=== PATIENT | male | born 2000 | race Caucasian/White ===

== ENCOUNTER 2020-03-25 12:39 | Inpatient (IN) | payer OTHER ==
[~2020-03-25] VITALS: Ht 177.8 cm; Wt 92.7 kg
[2020-03-25] MEDS ORDERED: ZOLO25TA PO (12:47)
[2020-03-25 13:21] LABS: HEMATOCRIT 44.1 % (42.0-52.0); HEMOGLOBIN 15.2 g/dl (13.5-17.5); MEAN CORPUSCULAR HEMOGLOBIN 30.2 pg (27.0-33.0); MEAN CORPUSCULAR HGB CONC 34.5 g/dl (32.0-36.5); MEAN CORPUSCULAR VOLUME 87.7 fl (80.0-96.0); PLATELET COUNT, AUTOMATED 246 10^3/uL (150-450); RED BLOOD COUNT 5.03 10^6/uL (4.30-6.10); WHITE BLOOD COUNT 8.9 10^3/uL (4.0-10.0)
[2020-03-25 14:31] LABS: ACETAMINOPHEN LEVEL < 2.0 UG/ML (10.0-30.0); ALBUMIN 4.1 GM/DL (3.2-5.2); ALT/SGPT 30 U/L (12-78); BILIRUBIN,DIRECT 0.1 MG/DL (0.0-0.2); BILIRUBIN,TOTAL 0.5 MG/DL (0.2-1.0); BLOOD UREA NITROGEN 17 MG/DL (7-18); CALCIUM LEVEL 9.3 MG/DL (8.5-10.1); CARBON DIOXIDE LEVEL 24 MEQ/L (21-32); CHLORIDE LEVEL 111 MEQ/L (98-107); CREATININE FOR GFR 0.97 MG/DL (0.70-1.30); ETHYL ALCOHOL (ETHANOL) < 0.003 % (0.000-0.010); GLUCOSE, FASTING 88 MG/DL (70-100); POTASSIUM SERUM 4.1 MEQ/L (3.5-5.1); SALICYLATE LEVEL < 1.7 MG/DL (5.0-30.0); SODIUM LEVEL 142 MEQ/L (136-145); THYROID STIMULATING HORMONE 0.809 uIU/ML (0.463-3.98); TOTAL PROTEIN 7.4 GM/DL (6.4-8.2)
[2020-03-25 16:05] LABS: AMPHETAMINES LEVEL URINE NEGATIVE (NEGATIVE); BARBITURATES URINE NEGATIVE (NEGATIVE); BENZODIAZEPINES URINE NEGATIVE (NEGATIVE); CANNABINOIDS URINE NEGATIVE (NEGATIVE); COCAINE METABOLITE URINE NEGATIVE (NEGATIVE); METHADONE URINE NEGATIVE (NEGATIVE); OPIATES URINE NEGATIVE (NEGATIVE); PHENCYCLIDINE URINE NEGATIVE (NEGATIVE)
[2020-03-25] MEDS ORDERED: OLANZapine ORAL DISINTEGRATING TAB 5MG PO PRN (18:45)
[2020-03-25] MEDS ORDERED: ACETAMINOPHEN TAB 650MG DOSE (2X325MG) PO PRN (18:45)
[2020-03-25] MEDS ORDERED: MOM 30ML SUSPENSION UDC PO PRN (18:45)
[2020-03-25] MEDS ORDERED: traZODone 50 MG TAB PO PRN (18:45)
[2020-03-25] MEDS ORDERED: MAALOX 30 ML SUSP *UDC PO PRN (18:45)
[2020-03-25 22:36] VITALS: BP 125/73
[2020-03-26 06:51] VITALS: BP 116/70
--- NOTE | 2020-03-26 09:56 | MHHPEPDOC ---
[facility] History & Physical History and Physical DATE OF ADMISSION: Mar 25, 2020 at 18:31 Subjective HPI: Andriy presents today for concerns regarding his mental health. He describes his mood as depressed and demotivated. However, the patient denies hallucination . No current outpatient treatment. He reports to be feeling depressed since December without much elaboration and reports to have multiple stressors that have been getting worse. Since this development and frequent clinic visits, he reports to be getting minimal sleep and has had extra duty from 6 pm to 11 pm after leaving the [employer] [facility] from [place]. He states to have some leave bu ilt up and decided to go to [place] to his fiance. He feels a lack of safety with his depressive symptoms worsening every day. Andriy admits in the last couple of weeks he has had some suicidal thoughts, but never wanted to act on it. Right now, he states that he does not have any suicidal thoughts. The last time he has had mental health treatment was in high school. At the time he was taking Prozac. Andriy admits that he has a at home, and he regrets not telling her about his suicidal thoughts. Andriy denies a history of hearing voices or staying up all night doing things he would otherwise not do. MEDICATIONS: He has not been on Zoloft long enough to notice a difference. FAMILY HISTORY: He also denies any history of mental health issues or substance abuse. 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 Objective Appearance: Well nourished. Well groomed. Appears to be stated age. Behavior: Pleasant. Cooperative with good eye contact. Engaged. Affect: Restricted. Mood: Depressed. Speech: Spontaneous and Fluid. Normal volume. Normal rate. Cognition: Alert, Attentive, and Oriented to person, place, time. Memory: No formal testing. No gross abnormalities of short or peat shredder tender memory noted during interview. Thought Form: Linear and goal directed. Thought Content: No evidence of delusions. Suicidal ideation present. No thoughts of self harm. No evidence of aggressive or homicidal ideation. Judgement: Fair Insight:fair Assessment F32.9 Major depressive disorder, single episode, unspecified (possibly adjustment disorder) Plan Requires a multi-modal treatment plan as this is severe and complex, needing close coordination. Restart Zoloft 25mg daily . INITIAL TREATMENT PLAN: 1. Patient was admitted on a 9.39 2. Complete history was obtained. 3. With patients permission, family will be contacted and database will be expanded. 4. Patients medication regimen will be reviewed and changed accordingly. 5. Patient will be provided with protected environment. 6. Patient will be treated with individual, group, and milieu therapies. 7. Patient will receive supportive psych-education. 8. Discharge planning will commence immediately. 9. Outpatient follow-up treatment will be strongly recommended. 10. The initial treatment plan will focus initially on: * Depression. * Risk for suicide. ESTIMATED LENGTH OF STAY: 1-2 DAYS. Vital Signs Vital Signs Date Time Temp Pulse Resp B/P (MAP) Pulse Ox O2 Delivery O2 Flow Rate FiO2 03/26/20 06:51 98.4 63 14 116/70 (85) 97 Room Air Laboratory Data 24H Labs Laboratory Tests 2 03/25/20 13:10: Nucleated Red Blood Cells % (auto) 0.0, Anion Gap 7L, Calcium Level 9.3, Total Bilirubin 0.5, Direct Bilirubin 0.1, Aspartate Amino Transf (AST/SGOT) 25, Ala nine Aminotransferase (ALT/SGPT) 30, Alkaline Phosphatase 63, Total Protein 7.4, Albumin 4.1, Albumin/Globulin Ratio 1.2, Thyroid Stimulating Hormone (TSH) 0.809, Salicylates Level < 1.7L, Acetaminophen Level < 2.0L, Ethyl Alcohol Level < 0.003 03/25/20 15:32: Urine Opiates Screen NEGATIVE, Urine Methadone Screen NEGATIVE, Urine Barbiturates Screen NEGATIVE, Urine Phencyclidine Screen NEGATIVE, Urine Amphetamines Screen NEGATIVE, Urine Benzodiazepines Screen NEGATIVE, Urine Cocaine Metabolite Screen NEGATIVE, Urine Cannabinoids Screen NEGATIVE CBC/BMP Laboratory Tests 03/25/20 13:10 Medications Scheduled Sertraline Hcl (Zoloft) 25 Mg Tablet, 25 MG PO QPM, (Reported) Allergies Coded Allergies: No Known Allergies (Unverified , 03/25/20) A-FIB/CHADSVASC A-FIB History Current/History of A-Fib/PAF?: No DULCE MARIA RANDOLPH DO Mar 26, 2020 09:56
[2020-03-26 15:29] VITALS: BP 108/67
--- NOTE | 2020-03-26 17:24 | HPEPDOC ---
General Date of Admission Mar 25, 2020 at 18:31 Date of Service: Mar 26, 2020 Chief Complaint The patient is a 20-year-old male admitted with a reason for visit of Unspecified Depressive Do. 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 He has been feeling depressed since december and following with [facility]. yesterday he was supposed to go for live fire exercises and felt he would not be able to handle ammunitions so walked in to [facility] and was immediately put on " No firearms status" I am seeing the patient for medical history and physical. Denies any physical complaints at this time. Home Medications Scheduled Sertraline Hcl (Zoloft) 25 Mg Tablet, 25 MG PO QPM, (Reported) Allergies Coded Allergies: No Known Allergies (Unverified , 03/25/20) Past Medical History Medical History Depression Surgical History none Family History Significant Family History: Cancer (maternal uncle), Diabetes (Mother and father), Heart disease (mother and father) Social History * Smoker: current smoker (vape) Alcohol: Denies A-FIB/CHADSVASC A-FIB History Current/History of A-Fib/PAF?: No Review of Systems Constitutional: Denies: Chills, Fever, Night Sweats Eyes: Denies: Pain, Vision change ENT: Denies: Head Aches, Ear Pain, Dysphagia Skin: Denies: Rash, Lesions, Breakdown Pulmonary: Denies: Dyspnea, Cough Cardiovascular: Denies: Chest Pain, Palpitations, Orthopnea, Paroxysmal Noc. Dyspnea, Lt Headedness Gastrointestinal: Denies: Nausea, Vomiting, Abdominal Pain, Diarrhea Genitourinary: Denies: Dysuria, Frequency, Incontinence, Retention Musculoskeletal: Denies: Neck Pain, Back Pain, Joint Pain, Muscle Pain, Spasms Neurological: Denies: Weakness, Numbness, Change in speech, Confusion Physical Examination General Exam: Positive: Alert, Cooperative, No Acute Distress Eye Exam: Positive: PERRLA, Conjunctiva & lids normal, EOMI; Negative: Sclera icteric ENT Exam: Positive: Atraumatic, Mucous membr. moist/pink, Pharynx Normal Neck Exam: Positive: Supple; Negative: JVD, thyromegaly Chest Exam: Positive: Clear to auscultation, Normal air movement Heart Exam: Positive: Rate Normal, Regular Rhythm, Normal S1, Normal S2; Negative: Murmurs, Rubs Abdomen Exam: Positive: Normal bowel sounds, Soft; Negative: Tenderness, Hepatospenomegaly Extremity Exam: Positive: Normal pulses; Negative: Clubbing, Cyanosis, Edema Skin Exam: Positive: Nl turgor and temperature; Negative: Breakdown, Lesion Vital Signs Vital Signs Date Time Temp Pulse Resp B/P (MAP) Pulse Ox O2 Delivery O2 Flow Rate FiO2 03/26/20 15:29 98.2 65 16 108/67 (81) 03/26/20 06:51 97 Room Air Assessment/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 He has been feeling depressed since december and following with [facility]. yesterday he was supposed to go for live fire exercises and felt he would not be able to handle ammunitions so walked in to [facility] and was immediately put on " No firearms status" I am seeing the patient for medical history and physical. Denies any physical complaints at this time. Depression as per psychiatry No medical issues will sign off. Plan / VTE VTE Prophylaxis Ordered?: No NOEMI HOGAN MD Mar 26, 2020 17:24
[2020-03-26] MEDS ORDERED: SERTRALINE HCL 25 MG TABLET PO SCH (21:00)
[2020-03-27 06:39] VITALS: BP 122/61
--- NOTE | 2020-03-27 10:32 | MHDSPDOC ---
[facility] Discharge Summary Discharge Summary DATE OF ADMISSION: Mar 25, 2020 at 18:31 DATE OF DISCHARGE: Mar 27, 2020 at 12:30 DISCHARGE DIAGNOSES: F43.25 Adjustment disorder with mixed disturbance of emotions and conduct CONSULTANTS INVOLVED:[ None (basic hospitalist screening)] REASON FOR ADMISSION & TREATMENT AND PROGRESS ON THE UNIT : The patient was admitted into the inpatient mental health unit after reportedly making statements during multiple stressors. He was admitted and resumed on Sertraline that he had been on as an outpatient. He already had it and had tried it for some time. He resolved well without much issue suggesting an adjustment disorder. He did well in the unit. He didnt engage in any concerning behavior and generally was amenable to all of our interventions. He did well and subsequently resolved. DISCHARGE ASSESSMENT[improved] Legal status considerations: The patient at the time of discharge did not meet criteria for involuntary admission/extension due to having a [normal] mental status exam, [fair] insight into the situation, They are engaged in the discharge process, as well as being friendly and amenable in behavioral control and havent been engaging in any observed concerning behavior or ideation recently. They decline voluntary extension/admission at this time and must be discharged in good aggie, as Im unable to make a case for holding the patient against their will. They may have historical risk factors of admissions and other interactions with psychiatry however, those are not modifiable from a clinical perspective. The patient will need to be discharged in good aggie. MENTAL STATUS EXAMINATION ON DISCHARGE: [General: Well dressed with good hygiene Speech: Spontaneous and fluid Thought processes: Linear and logical Thought content: Future orientated Abstract reasoning, and computation: Intact Description of associations: Intact Description of abnormal or psychotic thoughts:Denies any suicidal or homicidal ideation. Denies any auditory or visual hallucinations. Does not appear to be responding to internal stimuli. Does not appear to be endorsing any bizarre or paranoid ideation. Judgment: fair Insight: fair Orientation: Alert and orientated 3 Recent and remote memory: Intact Attention span and concentration: Intact Fund of knowledge: Adequate Mood: "okay" Affect: Euthymic with a full range] PLAN/FOLLOWUP ARRANGEMENTS: Follow up appointments made (PCP and MH in 5 days of D/C date) and safety plan completed. Safety Planning aspects completed prior to discharge [DOD: Weapons Profile 30 days] [Medication supplies limited to 7 days with 4 refills to prevent accumulation to OD] [RN reviewed crisis hotline information and other aspects to empower patient to access care in interim before next appointment.] The amount of time spent in the coordination of care for this patient was approximately 30 minutes. Vital Signs/I&Os Vital Signs Date Time Temp Pulse Resp B/P (MAP) Pulse Ox O2 Delivery O2 Flow Rate FiO2 03/27/20 06:39 97.3 62 12 122/61 (81) Room Air 03/26/20 06:51 97 Medications Scheduled Sertraline Hcl (Zoloft) 25 Mg Tablet, 25 MG PO QPM for mood for 7 Days, #7 Allergies Coded Allergies: No Known Allergies (Unverified , 03/25/20) DULCE MARIA RANDOLPH DO Mar 27, 2020 10:32
[2020-03-27] MEDS ORDERED: ZOLO25TA PO (10:46)
== END 2020-03-27 12:30 | disposition home or self-care (01) | DRG 882 ==
LOC: M ED 12:39 → M ED INP 18:31 → M PSY 22:13
PROVIDERS: ADMIT Psychiatry & Neurology Psychiatry; ATTEND Psychiatry & Neurology Addiction Medicine
DX: F43.25 Adjustment disorder with mixed disturbance of emotions and conduct (principal); Z79.899 Other long term (current) drug therapy

== ENCOUNTER → 2021-02-02 | Outpatient (CLI) | payer OTHER ==
[~2021-02-02] MED LIST: ZOLO25TA PO
--- NOTE | 2021-02-04 16:23 | REP ---
INDICATION: ABN X RAY, POSSIBLE NODULAR DENSITIES. COMPARISON: Radiographs 01/16/2021. TECHNIQUE: CT chest performed without the use of intravenous contrast. Sagittal and coronal reconstruction images are performed. FINDINGS: Lungs: 2 calcified granulomas are seen peripherally in the anterior left upper lobe. A calcified granuloma seen more inferiorly in the left upper lobe. Two calcified granulomas are seen in the right upper lobe. Mediastinum: No gross adenopathy. There is residual thymic tissue in the anterior mediastinum. Bryanna: There are small calcified hilar lymph nodes bilaterally.. Axilla: No gross adenopathy. Pleura: No effusion. Heart: Not enlarged. Thoracic aorta: No aneurysm. Upper abdominal structures: Grossly unremarkable. Visualized osseous structures: Unremarkable. IMPRESSION: Bilateral benign calcified granulomas and small calcified hilar lymph nodes, indicating prior granulomatous disease. No other significant findings. <Electronically signed by Koko Benitez > 02/04/21 [id number]
== END ==
LOC: M RAD 17:00
PROVIDERS: ATTEND Physician Assistant
DX: R91.8 Other nonspecific abnormal finding of lung field (principal)

== ENCOUNTER 2022-06-07 15:35 | Emergency (ER) | payer OTHER ==
[~2022-06-07] VITALS: Ht 180.3 cm; Wt 95.5 kg
[2022-06-07 19:18] VITALS: BP 124/85
[2022-06-07 19:47] LABS: BASO # 0.1 10^3/uL (0.0-0.2); BASO % 0.5 % (0.0-1.0); EOS # 0.2 10^3/uL (0.0-0.5); EOS % 1.6 % (0.0-3.0); HEMATOCRIT 42.5 % (42.0-52.0); HEMOGLOBIN 14.1 g/dl (13.5-17.5); LYMPH # 4.2 10^3/uL (1.5-5.0); LYMPH % 40.8 % (24.0-44.0); MEAN CORPUSCULAR HEMOGLOBIN 29.4 pg (27.0-33.0); MEAN CORPUSCULAR HGB CONC 33.2 g/dl (32.0-36.5); MEAN CORPUSCULAR VOLUME 88.7 fl (80.0-96.0); MONO # 0.8 10^3/uL (0.0-0.8); MONO % 7.9 % (2.0-8.0); NEUTROPHILS % 48.8 % (36.0-66.0); PLATELET COUNT, AUTOMATED 286 10^3/uL (150-450); RED BLOOD COUNT 4.79 10^6/uL (4.30-6.10); WHITE BLOOD COUNT 10.3 10^3/uL (4.0-10.0)
[2022-06-07 20:15] LABS: ALBUMIN 3.9 G/DL (3.2-5.2); ALKALINE PHOSPHATASE 57 U/L (46-116); ALT/SGPT 53 U/L (7.0-40); AST/SGOT 42 U/L (<34); BILIRUBIN,TOTAL 0.4 MG/DL (0.3-1.2); BLOOD UREA NITROGEN 13 MG/DL (9-23); CALCIUM LEVEL 8.4 MG/DL (8.5-10.1); CARBON DIOXIDE LEVEL 29 MMOL/L (20-31); CHLORIDE LEVEL 107 MMOL/L (98-107); CPK CREATINE PHOSPHOKINASE 840 U/L (46-171); CREATININE FOR GFR 0.81 MG/DL (0.70-1.30); GLOMERULAR FILTRATION RATE > 60.0 (>60); GLUCOSE, FASTING 86 MG/DL (60-100); POTASSIUM SERUM 3.4 MMOL/L (3.5-5.1); SODIUM LEVEL 144 MMOL/L (136-145); TOTAL PROTEIN 6.5 G/DL (5.7-8.2)
[2022-06-07] MEDS ORDERED: NS 1,000 ML IV ONE (21:25)
[2022-06-08 00:01] LABS: GC DNA AMPLIFICATION NEGATIVE (NEGATIVE)
== END 2022-06-07 22:38 | disposition home or self-care (01) ==
LOC: M ED 15:35
DX: M62.82 Rhabdomyolysis (principal); Q63.1 Lobulated, fused and horseshoe kidney; F41.9 Anxiety disorder, unspecified; F32.9 Major depressive disorder, single episode, unspecified; F17.290 Nicotine dependence, other tobacco product, uncomplicated; Z84.1 Family history of disorders of kidney and ureter

== ENCOUNTER 2023-03-13 07:04 | Emergency (ER) | payer OTHER ==
[~2023-03-13] VITALS: Ht 180.3 cm; Wt 109.9 kg
[2023-03-13 07:04] VITALS: BP 129/71; TEMP 97.4; O2SAT 97
[2023-03-13] MEDS ORDERED: CIPRODEX OTIC SUSP 7.5ML AS STA (08:05)
[2023-03-13] MEDS ORDERED: CIPR7.5D5 AS (08:08)
== END 2023-03-13 08:24 | disposition home or self-care (01) ==
LOC: M ED 07:04
DX: H60.92 Unspecified otitis externa, left ear (principal); Z79.2 Long term (current) use of antibiotics